=== PATIENT | male | born 1980 | race Two or more races ===

== ENCOUNTER 2019-01-10 20:10 | Emergency (ER) | payer MEDICAID ==
[~2019-01-10] VITALS: Ht 162.6 cm; Wt 65.3 kg
[2019-01-10 20:20] VITALS: BP 129/84
--- NOTE | 2019-01-10 20:20 | NUR ---
ED Nurse Note: Pt c/o 01/25 CP x2days, also c/o abdominal pain radiating to back. headaches since 1800 today
--- NOTE | 2019-01-10 20:44 | Emergency Room Report ---
History of Present Illness General Chief Complaint: Chest Pain Source: Patient (oRbby Chen MD) Present Illness HPI Resents with left-sided chest and upper abdominal pain. This been going on for several days. He was just discharged from [facility] this morning. He was drinking alcohol after discharge. He feels pressure the rates it 9/10 and is constant but worse with changing position and exertion. Pain is also slightly in his left upper quadrant. He denies coffee grounds or melena. Patient does not know what [facility] found. He has not had a cardiac work-up in the past. He does use THC and tobacco in addition to alcohol. Denies hypertension and family history. No fevers, chills, sore throat, palpitations, vomiting, diarrhea, dysuria, shortness of breath, joint pain, rashes, depression, anxiety, visual changes, headache. (Robby Chen MD) Allergies: Coded Allergies: ACETAMINOPHEN (Verified Allergy, Unknown, 01/10/19) Patient History Past Medical History: see triage record Social History: Reports: smoking, alcohol use, drug use - THC Social History Narrative Lives with girlfriend Reviewed Nursing Documentation: PMH: Agreed; PSxH: Agreed (Robby Chen MD) Nursing Documentation-PMH Past Medical History: No History, Except For Hx Diabetes: Yes (Robby Chen MD) Review of Systems All Other Systems: negative except mentioned in HPI (Robby Chen MD) Physical Exam Vital Signs Date Time Temp Pulse Resp B/P (MAP) Pulse Ox O2 Delivery O2 Flow Rate FiO2 01/10/19 20:16 98.2 80 18 129/84 (99) 99 Room Air Sp02 EP Interpretation: reviewed, normal General Appearance: well appearing, no apparent distress, GCS 15, non-toxic - All Head: normocephalic Eyes: bilateral eye PERRL, bilateral eye EOMI, bilateral eye Scleral Injection ENT: moist mucus membranes Neck: supple Respiratory: lungs clear, normal breath sounds Cardiovascular #1: regular rate, rhythm, no edema Cardiovascular #2: 2+ radial (R) Gastrointestinal: normal inspection, normal bowel sounds, soft, non-distended, no guarding, no rebound, tenderness - Minimal left upper quadrant Genitourinary: no CVA tenderness Musculoskeletal: back normal, gait/station normal, normal range of motion Neurologic: alert, oriented x3, grossly normal Psychiatric: depressed affect Skin: other - Petechiae ecchymoses and telangiectasias (Robby Chen MD) Medical Decision Making Diagnostic Impression: Primary Impression: Chest pain Qualified Codes: R07.9 - Chest pain, unspecified Additional Impressions: Hyperglycemia Thrombocytopenia Alcohol abuse Amphetamine abuse ER Course Patient presents with left-sided chest and abdominal pain. Differential includes acute myocardial infarction, GERD, splenomegaly, gastritis, pancreatitis, diabetic ketoacidosis amongst others. He has recent alcohol ingestion. Work-up with EKG, chest x-ray and labs.Patient was treated with Pepcid, Mylanta, viscous lidocaine and Reglan with Benadryl. Patient will receive IV hydration. Glucose critically high. Minimally low bicarbonate Insulin SQ and IV given. Glucose 384 after initial dose. Repeat 10 units IV. Repeat blood sugar 207 Patient signed out to Dr. Delgadillo. Laboratory Tests Test 01/10/19 20:37 01/10/19 21:05 01/10/19 21:20 White Blood Count 3.3 K/UL (4.8-10.8) L Red Blood Count 3.93 M/UL (4.70-6.10) L Hemoglobin 12.0 G/DL (14.2-18.0) L Hematocrit 36.6 % (42.0-52.0) L Mean Corpuscular Volume 93 FL (80-99) Mean Corpuscular Hemoglobin 30.4 PG (27.0-31.0) Mean Corpuscular Hemoglobin Concent 32.7 G/DL (32.0-36.0) Red Cell Distribution Width 12.8 % (11.6-14.8) Platelet Count 79 K/UL (150-450) L Mean Platelet Volume 5.4 FL (6.5-10.1) L Neutrophils (%) (Auto) % (45.0-75.0) Lymphocytes (%) (Auto) % (20.0-45.0) Monocytes (%) (Auto) % (1.0-10.0) Eosinophils (%) (Auto) % (0.0-3.0) Basophils (%) (Auto) % (0.0-2.0) Differential Total Cells Counted 100 Neutrophils % (Manual) 65 % (45-75) Lymphocytes % (Manual) 28 % (20-45) Monocytes % (Manual) 5 % (1-10) Eosinophils % (Manual) 1 % (0-3) Basophils % (Manual) 1 % (0-2) Band Neutrophils 0 % (0-8) Platelet Estimate Decreased L Platelet Morphology Normal Red Blood Cell Morphology Normal Prothrombin Time 10.9 SEC (9.30-11.50) Prothrombin Time INR 1.0 (0.9-1.1) PTT 26 SEC (23-33) Sodium Level 137 MMOL/L (136-145) Potassium Level 3.7 MMOL/L (3.5-5.1) Chloride Level 101 MMOL/L (98-107) Carbon Dioxide Level 19 MMOL/L (21-32) L Anion Gap 17 mmol/L (5-15) H Blood Urea Nitrogen 10 mg/dL (7-18) Creatinine 1.1 MG/DL (0.55-1.30) Estimate Glomerular Filtration Rate > 60 mL/min (>60) Glucose Level 540 MG/DL (74-106) *H Calcium Level 9.0 MG/DL (8.5-10.1) Total Bilirubin 1.0 MG/DL (0.2-1.0) Aspartate Amino Transferase (AST) 69 U/L (15-37) H Alanine Aminotransferase (ALT) 92 U/L (12-78) H Alkaline Phosphatase 405 U/L (46-116) H Total Creatine Kinase 211 U/L (26-308) Troponin I 0.000 ng/mL (0.000-0.056) Pro-B-Type Natriuretic Peptide 339 pg/mL (0-125) H Total Protein 7.4 G/DL (6.4-8.2) Albumin 3.1 G/DL (3.4-5.0) L Globulin 4.3 g/dL Albumin/Globulin Ratio 0.7 (1.0-2.7) L Lipase 44 U/L (73-393) L Serum Alcohol 24 mg/dL Urine Color Pale yellow Urine Appearance Clear Urine pH 6.5 (4.5-8.0) Urine Specific Glenn 1.005 (1.005-1.035) Urine Protein Negative (NEGATIVE) Urine Glucose (UA) 4+ (NEGATIVE) H Urine Ketones 3+ (NEGATIVE) H Urine Blood 2+ (NEGATIVE) H Urine Nitrite Negative (NEGATIVE) Urine Bilirubin Negative (NEGATIVE) Urine Urobilinogen Normal MG/DL (0.0-1.0) Urine Leukocyte Esterase 1+ (NEGATIVE) H Urine RBC 5-10 /HPF (0 - 0) H Urine WBC 2-4 /HPF (0 - 0) Urine Squamous Epithelial Cells None /LPF (NONE/OCC) Urine Bacteria Few /HPF (NONE) Urine Opiates Screen Negative (NEGATIVE) Urine Barbiturates Screen Negative (NEGATIVE) Phencyclidine (PCP) Screen Negative (NEGATIVE) Urine Amphetamines Screen Positive (NEGATIVE) H Urine Benzodiazepines Screen Negative (NEGATIVE) Urine Cocaine Screen Negative (NEGATIVE) Urine Marijuana (THC) Screen Negative (NEGATIVE) (Robby Chen MD) ER Course Patient signed out to me. He presents with hyperglycemia and substance abuse. He is now awake eating normally. Glucose much better. Will discharge home. (Shravan Delgadillo MD) EKG Diagnostic Results Rate: normal Rhythm: NSR ST Segments: no acute changes (Robby Chen MD) Rhythm Strip Diag. Results EP Interpretation: yes Rhythm: NSR, no PVC's, no ectopy (Robby Chen MD) Chest X-Ray Diagnostic Results Chest X-Ray Diagnostic Results : Chest X-Ray Ordered: Yes # of Views/Limited/Complete: 1 View Indication: Chest Pain Interpretation: no consolidation, no effusion, no pneumothorax Impression: No acute disease Electronically Signed by: Electronically signed by Robby Chen MD (Robby Chen MD) Last Vital Signs Date Time Temp Pulse Resp B/P (MAP) Pulse Ox O2 Delivery O2 Flow Rate FiO2 01/11/19 01:15 98.3 88 16 117/86 98 Room Air Status: improved (Robby Chen MD) Status: improved (Shravan Delgadillo MD) Disposition: HOME, SELF-CARE Condition: Stable Additional Instructions: Abstain from drugs and alcohol. Follow-up your doctor in 7 days. Return if worse. Take your insulin. Robby Chen MD Jan 10, 2019 20:44 Shravan Delgadillo MD Jan 11, 2019 01:10
[2019-01-10] MEDS ORDERED: Metoclopramide 10mg/2ml Inj IVP ONE (20:45)
[2019-01-10] MEDS ORDERED: Mylanta II UD 30ml ORAL ONE (20:45)
[2019-01-10] MEDS ORDERED: Lidocaine 2% Visc 15ml soln ORAL ONE (20:45)
[2019-01-10] MEDS ORDERED: DiphenhydrAMINE 50mg/ml Inj IVP ONE (20:45)
[2019-01-10 21:19] LABS: HEMATOCRIT 36.6 % (42.0-52.0); MEAN CORPUSCULAR VOLUME 93 FL (80-99); PLATELET COUNT 79 K/UL (150-450); RED BLOOD COUNT 3.93 M/UL (4.70-6.10); RED CELL DISTRIBUTION WIDTH 12.8 % (11.6-14.8); WHITE BLOOD COUNT 3.3 K/UL (4.8-10.8)
[2019-01-10 21:37] LABS: APPEARANCE,URINE CLEAR; BILIRUBIN, URINE NEGATIVE (NEGATIVE); COLOR,URINE PALE YELLOW; GLUCOSE, URINE (UA) 4+ (NEGATIVE); KETONES,URINE 3+ (NEGATIVE); LEUKOCYTE ESTERASE ,URINE 1+ (NEGATIVE); NITRITE,URINE NEGATIVE (NEGATIVE); PH,URINE 6.5 (4.5-8.0); PROTEIN,URINE NEGATIVE (NEGATIVE); UROBILINOGEN,URINE NORMAL MG/DL (0.0-1.0)
[2019-01-10 21:39] LABS: ALANINE AMINOTRANSFERASE 92 U/L (12-78); ALBUMIN 3.1 G/DL (3.4-5.0); ALBUMIN/GLOBULIN RATIO 0.7 (1.0-2.7); ALKALINE PHOSPHATASE 405 U/L (46-116); ANION GAP 17 mmol/L (5-15); ASPARTATE AMINO TRANSFERASE 69 U/L (15-37); BLOOD UREA NITROGEN 10 mg/dL (7-18); CARBON DIOXIDE 19 MMOL/L (21-32); CHLORIDE 101 MMOL/L (98-107); CREATINE KINASE 211 U/L (26-308); CREATININE 1.1 MG/DL (0.55-1.30); POTASSIUM 3.7 MMOL/L (3.5-5.1); SODIUM 137 MMOL/L (136-145)
--- NOTE | 2019-01-10 21:40 | NUR ---
ED Nurse Note: informed ermd about pt BS, awaiting further orders will continue to monitor
[2019-01-10] MEDS ORDERED: Insulin Human Regular 100units/ml 3ml IV ONE ×2 (22:00→22:45)
[2019-01-10 22:10] VITALS: BP 121/81
[2019-01-11 00:03] VITALS: BP 114/87
[2019-01-11 01:15] VITALS: BP 117/86
--- NOTE | 2019-01-11 01:15 | NUR ---
ER DISCHARGE NOTE: Patient is cleared to be discharged per ERMD, pt is aox4, on room air, with stable vital signs. pt was given dc instructions, pt was able to verbalize understanding, pt id band and iv site removed without complications. pt is able to ambulate with steady gait. pt took all belongings.
--- NOTE | 2019-01-11 11:15 | Cardiology Report ---
APPROVED REPORT EKG Measurement Heart [id number] [id number] Sinus rhythm with short NH nonspecific t wave abn
--- NOTE | 2019-01-11 14:06 | Diagnostic Imaging Report ---
Indication: Chest pain Technique: One view of the chest Comparison: none Findings: Inspiration is suboptimal. This results in crowding of bronchovascular markings. The heart size is normal. No definite infiltrates or effusions. There is equivocal mild central interstitial prominence. What appears to be a ball of vascular coils projects in the upper abdomen on the right Impression: Equivocal mild central interstitial prominence, could indicate mild interstitial congestion or bronchitis changes. Correlate with clinical findings No acute process
== END 2019-01-11 01:15 | disposition home or self-care (01) ==
LOC: EMR 20:34
DX: R07.9 Chest pain, unspecified (principal); E11.65 Type 2 diabetes mellitus with hyperglycemia; D69.6 Thrombocytopenia, unspecified; F15.10 Other stimulant abuse, uncomplicated; F10.10 Alcohol abuse, uncomplicated; F12.10 Cannabis abuse, uncomplicated; F17.200 Nicotine dependence, unspecified, uncomplicated
CPT/HCPCS: 36415; 71045; 80053; 80307; 80329; 81003; 82550; 83690; 83880; 84484; 85007; 85025; 85610; 85730; 93005; 96361; 96372; 96374; 96375; 99284; J1200; J1815; J2765; S0028